=== PATIENT | male | born 2000 | race Hispanic/Latino ===

== ENCOUNTER 2021-09-19 10:25 | Observation (INO) | payer OTHER ==
[2021-09-19] MEDS ORDERED: Morphine 4 MG/ML VIAL ONE ×3 (10:58→13:32)
[2021-09-19 11:10] LABS: #Basophils 0.1 thou/uL (0.0-0.2); #Eosinphils 0.1 thou/uL (0.0-0.7); #Lymphocytes 1.7 thou/uL (1.20-3.40); #Monocytes 0.6 thou/uL (0.11-0.59); #Neutrophils 5.7 thou/uL (1.40-6.50); %Basophils 0.8 % (0.0-1.0); %Lymphocytes 21.2 % (21.0-51.0); Hemoglobin 15.5 g/dL (14.0-18.0); Mean Corpuscular HGB CONC 34.1 g/dL (32.0-36.0); Mean Corpuscular Hemoglobin 31.3 pg (27.0-31.0); Mean Corpuscular Volume 91.8 fL (78.0-98.0); Mean Platelet Volume 7.3 fL (7.4-10.4); Platelet Count 296 thou/uL (130-400); RBC Distribution Width 11.7 % (11.5-14.5); Red Blood Cell (RBC) Count 4.96 mill/uL (4.70-6.10); White Blood Cell (WBC) Count 8.1 thou/uL (4.8-10.8)
[2021-09-19] MEDS ORDERED: Propofol 500 MG/50 ML VIAL ONE (11:35)
[2021-09-19] MEDS ORDERED: PROPOFOL 0 ML ONE (11:35)
[2021-09-19 11:40] LABS: ALT (SGPT) 33 U/L (8-55); AST (SGOT) 26 U/L (5-34); Albumin 4.7 g/dL (3.5-5.0); Alkaline Phosphatase 75 U/L (40-110); Anion Gap 17 mmol/L (10-20); BUN (Urea Nitrogen) 11 mg/dL (8.9-20.6); Bilirubin, Total 0.4 mg/dL (0.2-1.2); Calc. Creatinine Clearance 0 mL/min (70-130); Calcium 10.1 mg/dL (7.8-10.44); Carbon Dioxide 22 mmol/L (22-29); Chloride 100 mmol/L (98-107); Globulin 3.5 g/dL (2.4-3.5); Glucose 143 mg/dL (70-105); Potassium 3.4 mmol/L (3.5-5.1); Protein, Total 8.2 g/dL (6.0-8.3); Sodium 136 mmol/L (136-145)
[2021-09-19] MEDS ORDERED: Ketamine 50 MG/ML (10ML VIAL) ONE (11:53)
[2021-09-19] MEDS ORDERED: PROPOFOL 20 ML ONE (11:53)
[2021-09-19] MEDS ORDERED: CEFAZOLIN 2 GM in Sodium Chloride 0.9% 100 ML IVPB SCH (12:45)
[2021-09-19 13:11] LABS: SARS-CoV-2 NAA Rapid Test Not Detected (NotDetected)
[2021-09-19] MEDS ORDERED: Fentanyl 100 MCG/2 ML VIAL ONE (13:26)
[2021-09-19] MEDS ORDERED: Midazolam HCl 2 mg/2 ml Vial ONE ×2 (13:26→14:13)
[2021-09-19] MEDS ORDERED: Dextrose 5% in Water 1,000 ML IV PRN (13:49)
[2021-09-19] MEDS ORDERED: Ondansetron ODT 4 MG TAB PO PRN (13:49)
[2021-09-19] MEDS ORDERED: Dextrose 50% Abboject 50 ML SYRINGE SLOW IVP PRN (13:49)
[2021-09-19] MEDS ORDERED: Morphine 4 MG/ML VIAL SLOW IVP PRN (13:49)
[2021-09-19] MEDS ORDERED: Ondansetron PF 4 MG/2 ML Vial IVP PRN (13:49)
[2021-09-19] MEDS ORDERED: Ibuprofen 800 MG TAB PO PRN (13:52)
[2021-09-19] MEDS ORDERED: Cyclobenzaprine 10 MG TAB PO PRN (13:52)
[2021-09-19] MEDS ORDERED: traMADol HCl 50 MG TAB PO PRN (13:52)
[2021-09-19] MEDS ORDERED: Bupivacaine HCl 0.5%/Epinephrine 1:200,000/PF 30 ml Vial ONE (14:27)
[2021-09-19] MEDS ORDERED: Lidocaine 1% PF 5 ML VIAL ONE (14:27)
[2021-09-19] MEDS ORDERED: PROPOFOL 200 MG/20 ML VIAL ONE (14:27)
[2021-09-19] MEDS ORDERED: Glycopyrrolate 0.2 MG/ML 5 ML SYRINGE ONE (14:27)
[2021-09-19] MEDS ORDERED: Ondansetron PF 4 MG/2 ML Vial ONE (14:27)
[2021-09-19] MEDS ORDERED: ePHEDrine 50 MG/ML VIAL ONE (14:27)
[2021-09-19] MEDS ORDERED: Rocuronium Bromide 10 MG/ML (10ML VIAL) ONE (14:27)
[2021-09-19] MEDS ORDERED: PHENYLEPHRINE-NS 100 MCG/ML 10 ML SYRINGE ONE (14:27)
[2021-09-19] MEDS ORDERED: Albumin 5% 500 ML ONE (15:01)
[2021-09-19] MEDS ORDERED: Ketorolac Tromethamine 30 MG/ML VIAL IVP PRN (16:41)
[2021-09-19] MEDS ORDERED: Promethazine HCl 25 MG/ML VIAL IVPB PRN (16:41)
[2021-09-19] MEDS ORDERED: Ondansetron HCl/PF 4 MG/2 ML Vial IVP PRN (16:41)
[2021-09-19] MEDS ORDERED: Promethazine HCl 25 MG/ML VIAL IM PRN (16:41)
[2021-09-19] MEDS: Acetaminophen 500 MG TAB PO SCH ×2 (19:53→21:20)
[2021-09-19] MEDS: traMADol HCl 50 MG TAB PO SCH ×2 (19:54→21:22)
[2021-09-19] MEDS: Sodium Chloride 0.9% 1,000 ML IV SCH ×2 (19:54→21:25)
[2021-09-19] MEDS: Famotidine 20 MG TAB PO SCH (21:23)
[2021-09-19] MEDS: ceFAZolin Sodium/D5W 2 GM in Premix Bag 1 BAG IVPB SCH (21:36)
[2021-09-19 22:21] VITALS: BMI 26.6
[2021-09-20] MEDS: traMADol HCl 50 MG TAB PO SCH ×2 (01:42→08:48)
[2021-09-20] MEDS: Acetaminophen 500 MG TAB PO SCH ×2 (01:43→08:47)
[2021-09-20] MEDS: Morphine 4 MG/ML VIAL SLOW IVP PRN ×2 (03:46→05:49)
[2021-09-20] MEDS: Sodium Chloride 0.9% 1,000 ML IV SCH (05:50)
[2021-09-20] MEDS: ceFAZolin Sodium/D5W 2 GM in Premix Bag 1 BAG IVPB SCH (05:50)
[2021-09-20 06:33] LABS: Phosphorus 2.7 mg/dL (2.3-4.7)
[2021-09-20 06:36] LABS: Band 7 % (5-11); Hemoglobin 11.9 g/dL (14.0-18.0); Hypochromia SLIGHT = 6-15 cells (100X) (0-5/hpf); Lymphocytes 17 % (21-51); MDiff Complete? YES; Mean Corpuscular HGB CONC 34.4 g/dL (32.0-36.0); Mean Corpuscular Hemoglobin 31.4 pg (27.0-31.0); Mean Corpuscular Volume 91.1 fL (78.0-98.0); Mean Platelet Volume 7.2 fL (7.4-10.4); Monocytes 11 % (0-10); Neutrophil 65 % (42-75); Platelet Count 220 thou/uL (130-400); Platelet Morphology Comment Appears Adequate; RBC Distribution Width 11.8 % (11.5-14.5); Red Blood Cell (RBC) Count 3.79 mill/uL (4.70-6.10); White Blood Cell (WBC) Count 8.4 thou/uL (4.8-10.8)
[2021-09-20 06:40] LABS: Anion Gap 9 mmol/L (10-20); BUN (Urea Nitrogen) 7 mg/dL (8.9-20.6); Calc. Creatinine Clearance 145 mL/min (70-130); Calcium 9.1 mg/dL (7.8-10.44); Carbon Dioxide 25 mmol/L (22-29); Chloride 106 mmol/L (98-107); Glucose 127 mg/dL (70-105); Magnesium 1.8 mg/dL (1.6-2.6); Potassium 3.7 mmol/L (3.5-5.1); Sodium 136 mmol/L (136-145)
[2021-09-20] MEDS: Famotidine 20 MG TAB PO SCH (08:54)
[2021-09-20] MEDS ORDERED: Acetaminophen/Codeine 30-300mg Tablet PO PRN (09:08)
[2021-09-20] MEDS ORDERED: Acetaminophen 325 MG TAB PO SCH (14:00)
[2021-09-20 15:18] VITALS: BP 108/85; TEMP 98.4
[2021-09-22] MEDS ORDERED: FLU VACC QS2021-22(6MOS UP)/PF 60 MCG/0.5 ML SYRINGE IM ONE (09:00)
== END 2021-09-20 16:40 | disposition home or self-care (01) ==
LOC: ERS 10:25 → SURG A 13:34
PROVIDERS: ADMIT Surgery; ATTEND Surgery
PROC: 0RSK04Z Reposition Left Shoulder Joint with Internal Fixation Device, Open Approach (ICD-10-PCS; principal; 2021-09-19)
PROC: 0LQ20ZZ Repair Left Shoulder Tendon, Open Approach (ICD-10-PCS; 2021-09-19)
DX: S42.292A Other displaced fracture of upper end of left humerus, initial encounter for closed fracture (principal); S42.252A Displaced fracture of greater tuberosity of left humerus, initial encounter for closed fracture; S46.892A Other injury of other muscles, fascia and tendons at shoulder and upper arm level, left arm, initial encounter; S00.81XA Abrasion of other part of head, initial encounter; S00.31XA Abrasion of nose, initial encounter; S00.511A Abrasion of lip, initial encounter; E87.6 Hypokalemia; F90.9 Attention-deficit hyperactivity disorder, unspecified type; R56.9 Unspecified convulsions; G89.11 Acute pain due to trauma; Z79.899 Other long term (current) drug therapy; Z20.822 Contact with and (suspected) exposure to COVID-19; W18.30XA Fall on same level, unspecified, initial encounter
CPT/HCPCS: 23650; 36415; 70450; 70486; 70551; 71045; 76000; 80048; 80053; 83735; 84100; 84146; 85025; 93005; 95712; 95819; 95957; 96374; 96376; 99156; 99157; C1713; G0378; J2250; J2270; J2405; J2704; J3010; J3490; J7050; P9045; U0002